=== PATIENT | male | born 1955 | race Caucasian/White ===

== ENCOUNTER 2022-08-30 16:32 | Emergency (ER) | payer OTHER ==
[~2022-08-30] VITALS: Ht 175.3 cm; Wt 99.8 kg
[~2022-08-30 16:32] MED LIST: ACET325 PO; AMLO5 PO; ASPI325; ATOR40TA; CHLO25 PO; CLOP75; CYCL10 PO; ERYT.5TO LEFTEYE; ESOM20; HYDACE5 PO; IBUHYD PO; Keflex500 MG PO; LISHYD2025; LISI20 PO; METPRE4DP PO; MULVITMIND PO; NAPR500 PO; NAPR550 PO; Norco 5-325 Ta1 EACH PO; OMEP20ER PO; OMEP40CA12 PO; OXYACE5T PO; OXYC5 PO; PANT40 PO; Percocet 5-3251 EACH PO; Prilosec20 MG PO; Robaxin500 MG PO; SUCR1 PO; TAMS.4ER; TAMS.4ER PO; Zofran Odt4 MG SL; [UNRECOGNIZED DRUG - OTHER]
[2022-08-30] MEDS ORDERED: Percocet 5-3251 EACH PO (20:12)
== END 2022-08-30 20:48 | disposition home or self-care (01) ==
LOC: ER 16:32
DX: S43.101A Unspecified dislocation of right acromioclavicular joint, initial encounter (principal); W19.XXXA Unspecified fall, initial encounter; I10 Essential (primary) hypertension; Z88.2 Allergy status to sulfonamides; Z79.899 Other long term (current) drug therapy
CPT/HCPCS: 29105; 73030; 99283-25; A9270

== ENCOUNTER 2023-06-27 17:43 | Emergency (ER) | payer OTHER ==
[~2023-06-27] VITALS: Ht 170.2 cm; Wt 74.8 kg
[2023-06-27 18:30] VITALS: BP 123/79
[2023-06-27] MEDS ORDERED: CYCL10 PO (19:34)
== END 2023-06-27 19:40 | disposition home or self-care (01) ==
LOC: ER 17:43
DX: S70.02XA Contusion of left hip, initial encounter (principal); W01.10XA Fall on same level from slipping, tripping and stumbling with subsequent striking against unspecified object, initial encounter; I10 Essential (primary) hypertension; Z88.2 Allergy status to sulfonamides; Z79.899 Other long term (current) drug therapy
CPT/HCPCS: 72100; 73502; 96374; 99284-25; A9270; J3010

== ENCOUNTER → 2023-07-06 | Outpatient (CLI) | payer OTHER ==
[2023-07-06 15:23] LABS: Alanine Aminotransfer (ALT/SGP 33 U/L (12-78); Albumin, Blood 3.9 g/dL (3.4-5.0); Alk Phos 62 U/L (50-136); Anion Gap 4 mmol/L (6-16); Aspartate Aminotrans (AST/SGOT 33 U/L (12-37); Bilirubin, Total 0.6 mg/dL (0.1-1.0); Blood Urea Nitrogen 9 mg/dL (8-24); CHOL/HDL RATIO 1.9; CO2, Blood 25 mmol/L (21-32); Calcium, Blood 9.9 mg/dL (8.5-10.1); Chloride, Blood 102 mmol/L (98-108); Cholesterol 212 mg/dL (50-200); Glucose, Blood 119 mg/dL (70-99); HDL Cholesterol 110 mg/dL (>39); LDL/HDL RATIO 0.8; Low Density Lipoprotein Chol 89 mg/dL (0-110); Potassium, Blood 4.2 mmol/L (3.5-5.5); Sodium, Blood 131 mmol/L (136-145); Triglycerides 67 mg/dL (30-160); Very Low Density Lipoprot Chol 13 mg/dL (6-32)
[2023-07-06 15:27] LABS: Albumin/Globulin Ratio 1.1 (0.8-1.8); Bun/Creatinine Ratio 12.3 (12.0-20.0); Creatinine, Blood 0.73 mg/dL (0.60-1.20); Globulin, Blood 3.6 g/dL (2.2-4.0); Glomerular Filtration Rate 99 (60-); Total Protein, Blood 7.5 g/dL (6.4-8.2)
== END | disposition home or self-care (01) ==
LOC: LAB SHORT 08:05 → LAB 08:05
PROVIDERS: Physician Assistant
DX: I10 Essential (primary) hypertension (principal); E78.2 Mixed hyperlipidemia
CPT/HCPCS: 80053; 80061

== ENCOUNTER 2024-03-19 07:57 | Day surgery (SDC) | payer OTHER ==
[~2024-03-19] VITALS: Ht 172 cm; Wt 98.6 kg
[2024-03-19] VITALS (17 sets, daily range): BP systolic 97–158; BP diastolic 55–97
[~2024-03-19 07:57] MED LIST changes: +AMLO10 PO; +ATORVASTATIN CA20 MG PO; +Acetaminophen 500 MG Tab PO SCH; +CeFAZolin Sodium 2,000 MG in NS 100 ML IV SCH; +Chlorhexidine Mouth Care 15 ML UDC MT SCH; +Lactated Ringer's 1,000 ML IV SCH; +OxyCODONE HCL 10 MG TABCR PO SCH; +ROSU5 PO; +Ropivacaine 0.5% HCl/Pf 123.125 MG,EPINEPHrine HCL 0.25 MG,Ketorolac Tromethamine 15 MG... INFIL SCH; +Tranexamic Acid 100 ML IV SCH
[2024-03-19] MEDS ORDERED: Ropivacaine 0.5% HCl/Pf 5 MG/ML 20ML VIAL ONE (09:33)
[2024-03-19] MEDS ORDERED: Metoclopramide HCl 5MG / ML 2ML Vial IV PRN (09:40)
[2024-03-19] MEDS ORDERED: HYDROmorphone HCl/Pf 1MG SYR IV PRN (09:40)
[2024-03-19] MEDS ORDERED: Ondansetron HCl 2 MG / ML 2ML Vial IV PRN (09:40)
[2024-03-19] MEDS ORDERED: DiphenhydrAMINE HCL 25 MG Cap PO PRN (09:40)
[2024-03-19] MEDS ORDERED: OxyCODONE HCL 5 MG TAB PO PRN ×2 (09:40)
[2024-03-19] MEDS ORDERED: Lactated Ringer's 1,000 ML IV SCH (09:45)
[2024-03-19] MEDS ORDERED: Magnesium Hydroxide Conc 10 ML UDC PO PRN (09:45)
[2024-03-19] MEDS ORDERED: Bisacodyl 10 MG Supp PR PRN (09:45)
[2024-03-19] MEDS ORDERED: Prochlorperazine Edisylate 10 mg Vial IV PRN (09:50)
[2024-03-19] MEDS ORDERED: Promethazine HCl 25 MG Tab PO PRN (09:50)
[2024-03-19] MEDS ORDERED: propofoL 20 ML IV ONE (10:16)
[2024-03-19] MEDS ORDERED: Lidocaine HCl 2% 20 ML MDV ONE (10:33)
[2024-03-19] MEDS ORDERED: Dexamethasone Sod Phos 10 MG/ML 1ML VIAL ONE (10:40)
[2024-03-19] MEDS ORDERED: FentaNYL Citrate 50 MCG/ML 2 ML Injection ONE ×2 (10:44→12:25)
--- NOTE | 2024-03-19 11:08 | NUR ---
03/19/24 1108 Donan Ramires SPINAL NERVE BLOCK ATTEMPTED UPON ENTRY TO OR. UNSUCCESSFUL DUE TO PATIENTS PRIOR BACK SURGERY. DR. ROQUE PLACED AN LMA
[2024-03-19] MEDS ORDERED: Ondansetron HCl 2 MG / ML 2ML Vial ONE (11:33)
[2024-03-19] MEDS ORDERED: Phenylephrine HCl 100 MCG/ML-NS 10MLSYR (1MG/10ML) ONE (12:03)
[2024-03-19] MEDS ORDERED: HYDROmorphone HCl/Pf 1MG SYR ONE (12:40)
[2024-03-19] MEDS ORDERED: Acetaminophen 500 MG Tab PO SCH (16:00)
[2024-03-19] MEDS ORDERED: Ketorolac Tromethamine 15mg Vial IV SCH (18:00)
--- NOTE | 2024-03-19 18:15 | NUR ---
SHIFT SUMMARY PT ARRIVED FROM OR VIA BED THIS AFTERNOON FOR RTHA. A&0 X4. VSS. PPP. DENIES N/V OR N/T. INCISION SITE COVERED WITH AQUACEL. NO DRAINAGE SEEN. EATING AND DRINKING TOLERATED. WORKED WITH PT THIS AFTERNOON. AMBULATED FROM BED TO BATHROOM TO CHAIR. PT REPORTS PAIN AT 6-7/10 AND IS BEING MANAGED PER EMAR.
[2024-03-19] MEDS ORDERED: CeFAZolin Sodium 2,000 MG in NS 100 ML IV SCH (18:30)
[2024-03-19] MEDS ORDERED: Docusate Sodium 100 MG Cap PO SCH (21:00)
[2024-03-20 00:05] VITALS: BP 137/95
[2024-03-20 03:10] VITALS: BP 151/99
--- NOTE | 2024-03-20 04:53 | NUR ---
SHIFT SUMMARY S/P R JAZMIN. AQUACEL DRESSING REMAINS CDI WITH POLAR PACK IN PLACE. UP TO AMBULATE/RESTROOM WITH 1 SBA USING FWW/GB. 2 JULY/TORADOL/TYLENOL FOR PAIN MANAGEMENT. VSS. USING CALL LIGHT APPORPRIATELY.
[2024-03-20 05:57] LABS: BASOPHILS ABSOLUTE AUTO 0.01 K/mm3 (0.00-0.23); BASOPHILS PERCENT AUTO 0 % (0-2); EOSINOPHILS PERCENT AUTO 0 % (0-6); Hematocrit 34.3 % (37.0-53.0); Hemoglobin 11.8 g/dL (13.5-17.5); IMMATURE GRAN ABSOLUTE AUTO 0.04 K/mm3 (0.00-0.10); IMMATURE GRAN PERCENT AUTO 0 % (0-1); LYMPHOCYTES ABSOLUTE AUTO 0.74 K/mm3 (0.84-5.20); LYMPHOCYTES PERCENT AUTO 6 % (21-46); MONOCYTES ABSOLUTE AUTO 0.67 K/mm3 (0.16-1.47); MONOCYTES PERCENT AUTO 6 % (4-13); Mean Corpuscular HGB 35.3 pg (26.0-34.0); Mean Corpuscular HGB Conc 34.4 g/dL (31.5-36.5); Mean Corpuscular Volume 103 fL (80-100); Mean Platelet Volume 9.1 fL (9.1-12.4); NEUTROPHILS ABSOLUTE AUTO 10.08 K/mm3 (1.96-9.15); NEUTROPHILS PERCENT AUTO 87 % (41-73); Platelet Count 243 K/mm3 (150-400); RDW Coefficient Variation 12.5 % (11.7-14.2); Red Blood Cell Count 3.34 M/mm3 (4.30-5.90); White Blood Cell Count 11.54 K/mm3 (4.00-11.30)
[2024-03-20] MEDS ORDERED: Omeprazole 20 MG CapCR PO SCH (06:00)
[2024-03-20 06:29] LABS: Bun/Creatinine Ratio 20.2 (12.0-20.0); Calcium, Blood 9.4 mg/dL (8.5-10.1); Creatinine, Blood 0.69 mg/dL (0.60-1.20); Potassium, Blood 3.6 mmol/L (3.5-5.5)
[2024-03-20 07:20] VITALS: BP 156/98
[2024-03-20] MEDS ORDERED: Rosuvastatin Calcium 10 MG Tab PO SCH (09:00)
[2024-03-20] MEDS ORDERED: Tamsulosin HCl 0.4 MG Cap PO SCH (09:00)
[2024-03-20] MEDS ORDERED: AmLODIPine Besylate 5 MG Tab PO SCH (09:00)
[2024-03-20] MEDS ORDERED: Aspirin 81 MG Chew PO SCH (09:00)
[2024-03-20] MEDS ORDERED: ASPI81CH PO (09:11)
--- NOTE | 2024-03-20 11:15 | NUR ---
DISCHARGE NOTE PATIENT WAS ABLE TO WORK WITH PT THIS MORNING. EATING, DRINKING, AND VOIDING FINE. DENIES N/V, N/T. PPP. VSS. INCISION SITE DRY CLEAN AND INTACT. COVERED WITH AQUACEL. IV WAS REMOVED AND DISCHARGE TEACHING COMPLETED WITH HIS . TAKEN OUT TO CAR VIA WHEELCHAIR TO CAR WHERE WAS WAITING TO TAKE HIM HOME.
== END 2024-03-20 11:11 | disposition home or self-care (01) ==
LOC: ORSCMMR 07:57 → ORD 09:15 → SURS 13:10 → ORSCMMR 03-20 11:11
PROVIDERS: Orthopaedic Surgery
PROC: 0SR90JZ Replacement of Right Hip Joint with Synthetic Substitute, Open Approach (ICD-10-PCS; principal; 2024-03-19 09:15)
DX: M16.11 Unilateral primary osteoarthritis, right hip (principal); I10 Essential (primary) hypertension; K21.9 Gastro-esophageal reflux disease without esophagitis; E78.5 Hyperlipidemia, unspecified; Z79.899 Other long term (current) drug therapy
CPT/HCPCS: 36415; 72170; 80048; 82947; 85025; 97110; 97116; 97162; A9270; C1776; J0171; J0690; J0735; J1100; J1170; J1885; J2371; J2405; J2704; J2795; J3010; J7120

== ENCOUNTER 2024-05-16 05:48 | Day surgery (SDC) | payer OTHER ==
[~2024-05-16] VITALS: Ht 172.7 cm; Wt 99.4 kg
[2024-05-16] VITALS (15 sets, daily range): BP systolic 116–164; BP diastolic 79–97
[~2024-05-16 05:48] MED LIST changes: +ASPI81CH PO; -Acetaminophen 500 MG Tab PO SCH; -CeFAZolin Sodium 2,000 MG in NS 100 ML IV SCH; -Chlorhexidine Mouth Care 15 ML UDC MT SCH; -Lactated Ringer's 1,000 ML IV SCH; -OxyCODONE HCL 10 MG TABCR PO SCH; -Ropivacaine 0.5% HCl/Pf 123.125 MG,EPINEPHrine HCL 0.25 MG,Ketorolac Tromethamine 15 MG... INFIL SCH; -Tranexamic Acid 100 ML IV SCH
[2024-05-16] MEDS ORDERED: Chlorhexidine Mouth Care 15 ML UDC MT SCH (06:30)
[2024-05-16] MEDS ORDERED: Lactated Ringer's 1,000 ML IV SCH ×2 (06:30→08:10)
[2024-05-16] MEDS ORDERED: CeFAZolin Sodium 2,000 MG in NS 100 ML IV SCH ×2 (06:30→16:00)
[2024-05-16] MEDS ORDERED: Acetaminophen 500 MG Tab PO SCH ×2 (06:30→16:00)
[2024-05-16] MEDS ORDERED: Ropivacaine 0.5% HCl/Pf 123.125 MG,EPINEPHrine HCL 0.25 MG,Ketorolac Tromethamine 15 MG... INFIL SCH (06:30)
[2024-05-16] MEDS ORDERED: OxyCODONE HCL 10 MG TABCR PO SCH (06:30)
[2024-05-16] MEDS ORDERED: Tranexamic Acid 100 ML IV SCH (06:35)
--- NOTE | 2024-05-16 06:57 | NUR ---
History, Chart, Medications and Allergies reviewed before start of procedure. Pre-Op teaching done. Pt verbalizes understanding. Whellchaired into Day Surgery with .
[2024-05-16] MEDS ORDERED: propofoL 20 ML IV ONE (07:48)
[2024-05-16] MEDS ORDERED: FentaNYL Citrate 50 MCG/ML 2 ML Injection ONE ×3 (07:53→09:13)
[2024-05-16] MEDS ORDERED: Promethazine HCl 25 MG Tab PO PRN (08:00)
[2024-05-16] MEDS ORDERED: Ondansetron HCl 2 MG / ML 2ML Vial IV PRN (08:00)
[2024-05-16] MEDS ORDERED: Magnesium Hydroxide Conc 10 ML UDC PO PRN (08:00)
[2024-05-16] MEDS ORDERED: Metoclopramide HCl 5MG / ML 2ML Vial IV PRN (08:00)
[2024-05-16] MEDS ORDERED: Prochlorperazine Edisylate 10 mg Vial IV PRN (08:00)
[2024-05-16] MEDS ORDERED: OxyCODONE HCL 5 MG TAB PO PRN ×2 (08:00)
[2024-05-16] MEDS ORDERED: Bisacodyl 10 MG Supp PR PRN (08:05)
[2024-05-16] MEDS ORDERED: DiphenhydrAMINE HCL 25 MG Cap PO PRN (08:05)
[2024-05-16] MEDS ORDERED: HYDROmorphone HCl/Pf 1MG SYR IV PRN (08:10)
[2024-05-16] MEDS ORDERED: Phenylephrine HCl 100 MCG/ML-NS 10MLSYR (1MG/10ML) ONE (08:20)
[2024-05-16] MEDS ORDERED: Tamsulosin HCl 0.4 MG Cap PO SCH (09:00)
[2024-05-16] MEDS ORDERED: Docusate Sodium 100 MG Cap PO SCH (09:00)
[2024-05-16] MEDS ORDERED: Rosuvastatin Calcium 10 MG Tab PO SCH (09:00)
[2024-05-16] MEDS ORDERED: AmLODIPine Besylate 5 MG Tab PO SCH (09:00)
[2024-05-16] MEDS ORDERED: HYDROmorphone HCl/Pf 1MG SYR ONE ×2 (10:12→10:30)
[2024-05-16] MEDS ORDERED: Ketorolac Tromethamine 15mg Vial IV SCH (12:00)
[2024-05-16] MEDS ORDERED: Ondansetron HCl 2 MG / ML 2ML Vial ONE (12:05)
[2024-05-16] MEDS ORDERED: Dexamethasone Sod Phos 10 MG/ML 1ML VIAL ONE (12:05)
[2024-05-17 00:38] VITALS: BP 114/69
[2024-05-17 02:52] VITALS: BP 141/75
[2024-05-17 05:16] LABS: BASOPHILS ABSOLUTE AUTO 0.02 K/mm3 (0.00-0.23); BASOPHILS PERCENT AUTO 0 % (0-2); EOSINOPHILS PERCENT AUTO 0 % (0-6); Hemoglobin 10.8 g/dL (13.5-17.5); IMMATURE GRAN ABSOLUTE AUTO 0.06 K/mm3 (0.00-0.10); IMMATURE GRAN PERCENT AUTO 1 % (0-1); LYMPHOCYTES ABSOLUTE AUTO 1.11 K/mm3 (0.84-5.20); LYMPHOCYTES PERCENT AUTO 8 % (21-46); MONOCYTES ABSOLUTE AUTO 0.94 K/mm3 (0.16-1.47); MONOCYTES PERCENT AUTO 7 % (4-13); Mean Corpuscular HGB Conc 33.8 g/dL (31.5-36.5); Mean Corpuscular Volume 101 fL (80-100); Mean Platelet Volume 9.4 fL (9.1-12.4); NEUTROPHILS ABSOLUTE AUTO 11.12 K/mm3 (1.96-9.15); NEUTROPHILS PERCENT AUTO 84 % (41-73); Platelet Count 273 K/mm3 (150-400); RDW Coefficient Variation 12.5 % (11.7-14.2); RDW Standard Deviation 46.4 fL (35.1-46.3); Red Blood Cell Count 3.18 M/mm3 (4.30-5.90); White Blood Cell Count 13.25 K/mm3 (4.00-11.30)
[2024-05-17 05:55] LABS: Bun/Creatinine Ratio 22.8 (12.0-20.0); Calcium, Blood 8.8 mg/dL (8.5-10.1); Creatinine, Blood 0.61 mg/dL (0.60-1.20); Potassium, Blood 3.7 mmol/L (3.5-5.5)
[2024-05-17] MEDS ORDERED: Omeprazole 20 MG CapCR PO SCH (06:00)
--- NOTE | 2024-05-17 07:38 | NUR ---
SHIFT SUMMARY NOC. PT POD 1 FOR LEFT TOTAL HIP. A/O X4. AMBULATES TO BR WITH SBA, FWW, AND GAITBELT. PT MEDICATED FOR PAIN OXY 10MG WITH REPORTED RELIEF. POLAR PACK IN PLACE. AQUACEL DRESSING C/D/I. PT VOIDING URINE, DID HAVE RETENTION DURING NIGHT BUT VOIDED WELL AFTER. PT RESTED WITH EYES CLOSED AND CALL LIGHT IN REACH.
[2024-05-17 07:40] VITALS: BP 148/90
[2024-05-17] MEDS ORDERED: Aspir 8181 MG PO (07:44)
[2024-05-17] MEDS ORDERED: Aspirin 81 MG Chew PO SCH (09:00)
[2024-05-17 09:44] VITALS: BP 130/85
--- NOTE | 2024-05-17 11:00 | NUR ---
SHIFT/DISCHARGE SUMMARY: PATIENT A/OX4, PLEASANT AND COOPERATIVE c CARE. PATIENT REPORTS PAIN TO L HIP, MACHINE CELL TUBER, ERIKA MEDICATED c PRN PAIN MEDS c GOOD EFFECT. DRESSING TO L HIP C/D/I. PATIENT WORKS c PT MOBILITY THIS AM, TOLERATING WELL. PATIENT DENIES CP/PRESSURE, SOB, N/V AND DIZZINESS. VITAL SIGNS REVIEWED. PIV WAS DC'D BY MACHINE CELL TUBER, ERIKA. PATIENT DISCHARGE HOME. CHARGE INSTRUCTIONS PACKET GIVEN BY MACHINE CELL TUBER, ERIKA. NICOLE, EDUCATE PATIENT REGARDING POST-OP SX TO L HIP, NEW PRESCRIBED RX, SELF CARE, AND TO F/U c DR. YEAGER. PATIENT VERBALIZED UNDERSTANDING AND NO FURTHER QUESTIONS. RX WAS FAXED BY [facility] TO PATIENT PREFERRED PHARMACY. ALL PATIENT PERSONAL BELONGINGS WERE SENT HOME c THE PATIENT. PATIENT LEFT THE ROOM AT 0920 AND WAS TRANSPORTED BY [employer]ANCIAL SERVICES REP TO PATIENT ENTRANCE.
== END 2024-05-17 09:46 | disposition home or self-care (01) ==
LOC: ORSCMMR 05:48 → ORD 08:00 → ORSCMMR 08:00 → SURS 10:46 → ORSCMMR 05-17 09:46 → ORD 05-21 09:15
PROVIDERS: Orthopaedic Surgery
PROC: 0SRB0JZ Replacement of Left Hip Joint with Synthetic Substitute, Open Approach (ICD-10-PCS; principal; 2024-05-16 08:00)
DX: M16.12 Unilateral primary osteoarthritis, left hip (principal); Z96.641 Presence of right artificial hip joint; I10 Essential (primary) hypertension; G47.33 Obstructive sleep apnea (adult) (pediatric); K21.9 Gastro-esophageal reflux disease without esophagitis; Z79.899 Other long term (current) drug therapy
CPT/HCPCS: 36415; 72170; 80048; 85025; 97110; 97116; 97162; 97530; A9270; C1776; J0171; J0690; J0735; J1100; J1170; J1885; J2371; J2405; J2704; J2795; J3010; J7120

== ENCOUNTER 2024-09-19 12:24 | Day surgery (SDC) | payer OTHER ==
[~2024-09-19] VITALS: Ht 172.7 cm; Wt 111.0 kg
[~2024-09-19 12:24] MED LIST changes: +Aspir 8181 MG PO; +Lactated Ringer's 1,000 ML IV ONE
[2024-09-19] MEDS ORDERED: propofoL 50 ML IV ONE (13:46)
[2024-09-19] MEDS ORDERED: Lactated Ringer's 1,000 ML IV ONE (13:49)
[2024-09-19] MEDS ORDERED: Ondansetron HCl 2 MG / ML 2ML Vial ONE (14:13)
[2024-09-19 15:11] VITALS: BP 126/86
== END 2024-09-19 15:13 | disposition home or self-care (01) ==
LOC: ORSCSDS 12:24
PROVIDERS: Surgery
PROC: 0DBN8ZX Excision of Sigmoid Colon, Via Natural or Artificial Opening Endoscopic, Diagnostic (ICD-10-PCS; principal; 2024-09-19 14:00)
PROC: 0DBH8ZX Excision of Cecum, Via Natural or Artificial Opening Endoscopic, Diagnostic (ICD-10-PCS; principal; 2024-09-19 14:00)
PROC: 0DBM8ZX Excision of Descending Colon, Via Natural or Artificial Opening Endoscopic, Diagnostic (ICD-10-PCS; principal; 2024-09-19 14:00)
DX: Z12.11 Encounter for screening for malignant neoplasm of colon (principal); R19.5 Other fecal abnormalities; D12.0 Benign neoplasm of cecum; D12.4 Benign neoplasm of descending colon; D12.5 Benign neoplasm of sigmoid colon; K57.30 Diverticulosis of large intestine without perforation or abscess without bleeding; Z86.0100 Personal history of colon polyps, unspecified; I10 Essential (primary) hypertension; E78.5 Hyperlipidemia, unspecified; G25.0 Essential tremor; N40.0 Benign prostatic hyperplasia without lower urinary tract symptoms; F03.A0 Unspecified dementia, mild, without behavioral disturbance, psychotic disturbance, mood disturbance, and anxiety; Z79.899 Other long term (current) drug therapy
CPT/HCPCS: 88305; J2405; J2704; J7120

== ENCOUNTER → 2025-01-03 | Outpatient (CLI) | payer OTHER ==
[~2025-01-03] MED LIST changes: -Lactated Ringer's 1,000 ML IV ONE
[2025-01-03 12:43] LABS: Microalb/Creat Ratio UR, Rand 15.233 mg/g (0.000-30.000); Microalbumin, Random Urine 26.2 mg/L (0.000-20.000)
== END ==
LOC: LAB SHORT 10:34 → LAB 10:34
PROVIDERS: Physician Assistant
DX: E11.59 Type 2 diabetes mellitus with other circulatory complications (principal); E11.69 Type 2 diabetes mellitus with other specified complication; E11.36 Type 2 diabetes mellitus with diabetic cataract
CPT/HCPCS: 82043; 82570

== ENCOUNTER 2025-03-25 08:33 | Day surgery (SDC) | payer OTHER ==
[2025-03-25] VITALS (24 sets, daily range): BP systolic 116–207; BP diastolic 73–121
[~2025-03-25] VITALS: Ht 172.7 cm; Wt 116.2 kg
[~2025-03-25 08:33] MED LIST changes: +Acetaminophen 500 MG Tab PO SCH; +CeFAZolin Sodium 3,000 MG in NS 100 ML IV SCH; +Chlorhexidine Mouth Care 15 ML UDC MT SCH; +Lactated Ringer's 1,000 ML IV SCH; +OxyCODONE HCL 10 MG TABCR PO SCH; +ROSUVASTATIN CAL5 MG PO; +Ropivacaine 0.5% HCl/Pf 123.125 MG,EPINEPHrine HCL 0.25 MG,Ketorolac Tromethamine 15 MG... INFIL SCH; +Tranexamic Acid 100 ML IV SCH
[2025-03-25] MEDS ORDERED: propofoL 0 ML IV ONE (09:08)
[2025-03-25] MEDS ORDERED: CeFAZolin Sodium 2,000 MG in NS 100 ML IV SCH ×2 (09:10→19:45)
[2025-03-25] MEDS ORDERED: FentaNYL Citrate 50 MCG/ML 2 ML Injection ONE ×2 (09:10→13:45)
--- NOTE | 2025-03-25 09:16 | NUR ---
Ambulatory in Day Surgery Patient confirms NPO status and agrees with scheduled surgery. Pre-Op teaching done. Pt verbalizes understanding. History, Chart, Medications and Allergies reviewed before start of procedure. Patient reports completing Chlorhexadine shower X2 prior to admission to hospital.
[2025-03-25] MEDS ORDERED: HYDROmorphone HCl/Pf 1MG SYR ONE ×2 (09:36→12:19)
[2025-03-25] MEDS ORDERED: CeFAZolin Sodium 2,000 MG VIAL ONE (09:43)
[2025-03-25] MEDS ORDERED: Promethazine HCl 25 MG Tab PO PRN (09:45)
[2025-03-25] MEDS ORDERED: Bisacodyl 10 MG Supp PR PRN (09:45)
[2025-03-25] MEDS ORDERED: Metoclopramide HCl 5MG / ML 2ML Vial IV PRN ×3 (09:50→13:35)
[2025-03-25] MEDS ORDERED: Labetalol HCL 5 MG/ML 4ML Injection (Single Dose) ONE ×2 (09:50→13:42)
[2025-03-25] MEDS ORDERED: OxyCODONE HCL 5 MG TAB PO PRN ×2 (09:50)
[2025-03-25] MEDS ORDERED: Ondansetron HCl 2 MG / ML 2ML Vial IV PRN ×3 (09:50→13:30)
[2025-03-25] MEDS ORDERED: HYDROmorphone HCl/Pf 1MG SYR IV PRN ×5 (09:55→13:35)
[2025-03-25] MEDS ORDERED: Magnesium Hydroxide Conc 10 ML UDC PO PRN (09:55)
[2025-03-25] MEDS ORDERED: DiphenhydrAMINE HCL 25 MG Cap PO PRN (09:55)
--- NOTE | 2025-03-25 10:03 | NUR ---
BOTH DR. YEAGER AND DR. MITCHELL NOTIFIED OF PT'S BP. WILL TX INTEROP PER DR. MITCHELL
[2025-03-25] MEDS ORDERED: propofoL 20 ML IV ONE (10:08)
[2025-03-25] MEDS ORDERED: Ketorolac Tromethamine 30mg Vial ONE (10:08)
[2025-03-25] MEDS ORDERED: Dexamethasone Sod Phos 10 MG/ML 1ML VIAL ONE (10:08)
[2025-03-25] MEDS ORDERED: Rocuronium Bromide 10 MG/ML 5ML Injection IV ONE (10:08)
[2025-03-25] MEDS ORDERED: Ondansetron HCl 2 MG / ML 2ML Vial ONE ×2 (10:08→13:49)
[2025-03-25] MEDS ORDERED: Lactated Ringer's 1,000 ML IV SCH (10:15)
[2025-03-25] MEDS ORDERED: Ketorolac Tromethamine 15mg Vial IV SCH (12:00)
[2025-03-25] MEDS ORDERED: ePHEDrine Sulfate 50 MG/ML 1ML Injection IV PRN ×2 (13:25)
[2025-03-25] MEDS ORDERED: Labetalol HCL 5 MG/ML 4ML Injection (Single Dose) IV PRN ×2 (13:25→13:40)
[2025-03-25] MEDS ORDERED: Atropine Sulfate 0.1 MG/ML 10ML SYR IV PRN ×2 (13:25→13:30)
[2025-03-25] MEDS ORDERED: Albuterol 2.5 MG/3 ML VIAL INH PRN ×2 (13:30)
[2025-03-25] MEDS ORDERED: FentaNYL Citrate 50 MCG/ML 2 ML Injection IV PRN ×4 (13:35→13:40)
[2025-03-25] MEDS ORDERED: Metoclopramide HCl 5MG / ML 2ML Vial ONE (13:58)
[2025-03-25] MEDS ORDERED: Droperidol 5 mg/2 ml Vial ONE (14:10)
[2025-03-25] MEDS ORDERED: Scopolamine Hydrobromide Patch TOP SCH (14:35)
[2025-03-25] MEDS ORDERED: Droperidol 5 mg/2 ml Vial IV ONE (14:35)
[2025-03-25] MEDS ORDERED: Acetaminophen 500 MG Tab PO SCH (16:00)
--- NOTE | 2025-03-25 16:13 | NUR ---
ARRIVAL TO SURGICAL FLOOR PAIN BETTER CONTROLLED AFTER MEDS IN PACU. HRR, VSS. CURRENTLY ON 1L O2 NC. LUNG SOUNDS DIMINISHED. INICISON WNL, AQUACEL AND YESIKA BANDAGE PRESENT. PPP. WIGGLES TOES. BRISK CAP REFILL. STATES NAUSEA RESOLVED. AWAITING POST OP VOID. SNACKS AND DRINKS AT GIVEN. FAMILY AT BEDSIDE.
--- NOTE | 2025-03-25 19:43 | NUR ---
SHIFT SUMMARY PAIN CONTROLLED WELL, DENIES NAUSEA. TOLERATING FOOD AND FLUIDS WELL. DID NOT WORK WITH THERAPY, BUT GOT UP IN CHAIR FOR DINNER. AMBULATED TO BATHROOM FOR VOID. EXPRESSED DESIRE TO STAY OVERNIGHT DUE TO SEVERAL STAIRS AT HOME. COLD THERAPY APPLIED, CURRENTLY RESTING IN BED.
[2025-03-25] MEDS ORDERED: Docusate Sodium 100 MG Cap PO SCH (21:00)
[2025-03-26 00:16] VITALS: BP 150/95
[2025-03-26 03:20] VITALS: BP 154/81
[2025-03-26 05:03] LABS: BASOPHILS ABSOLUTE AUTO 0.02 K/mm3 (0.00-0.23); BASOPHILS PERCENT AUTO 0 % (0-2); EOSINOPHILS ABSOLUTE AUTO 0.01 K/mm3 (0.00-0.68); EOSINOPHILS PERCENT AUTO 0 % (0-6); Hematocrit 36.2 % (37.0-53.0); Hemoglobin 12.3 g/dL (13.5-17.5); IMMATURE GRAN ABSOLUTE AUTO 0.05 K/mm3 (0.00-0.10); IMMATURE GRAN PERCENT AUTO 0 % (0-1); LYMPHOCYTES ABSOLUTE AUTO 1.04 K/mm3 (0.84-5.20); LYMPHOCYTES PERCENT AUTO 7 % (21-46); MONOCYTES ABSOLUTE AUTO 0.94 K/mm3 (0.16-1.47); MONOCYTES PERCENT AUTO 7 % (4-13); Mean Corpuscular HGB 30.2 pg (26.0-34.0); Mean Corpuscular Volume 89 fL (80-100); Mean Platelet Volume 8.8 fL (9.1-12.4); NEUTROPHILS ABSOLUTE AUTO 12.41 K/mm3 (1.96-9.15); NEUTROPHILS PERCENT AUTO 86 % (41-73); Platelet Count 274 K/mm3 (150-400); RDW Coefficient Variation 14.6 % (11.7-14.2); RDW Standard Deviation 46.9 fL (35.1-46.3); Red Blood Cell Count 4.07 M/mm3 (4.30-5.90); White Blood Cell Count 14.47 K/mm3 (4.00-11.30)
[2025-03-26 05:21] LABS: Calcium, Blood 9.1 mg/dL (8.5-10.1); Creatinine, Blood 0.74 mg/dL (0.60-1.20); Magnesium, Blood 1.7 mg/dL (1.6-2.4)
[2025-03-26] MEDS ORDERED: Omeprazole 20 MG CapCR PO SCH (06:00)
[2025-03-26 07:12] VITALS: BP 167/93
--- NOTE | 2025-03-26 07:52 | NUR ---
SHIFT SUMMARY LT TOTAL KNEE SURG TODAY. PATIENT IS SLEEPING BUT WOKE TO VERBAL. ALERT AND ORIENTED X4. LT KNEE WITH MEDIPORE DRESSING AND YESIKA WRAP. POLAR PACK AND PAS IN PLACE. CIRC CHECKS WNL. PPP. VSS T/O NOC. SB ASSIST TO THE BR TO VOID A FEW TIMES. WEIGHT BEARING TOLERATED. MEDICATED PATIENT WITH SCHEDULED MEDS AND PRN NEEDED. PAIN UNDER CONTROL NOW. OXYCODONE 10MG PO AT 0207 WAS LAST DOSE. SL LT WRIST PATENT. PT WAS ABLE TO REST WHEN UNDISTURBED. 0630 PATIENT RATED PAIN 2/10. HE IS READY TO GO HOME. EDUCATION GIVEN T/O NOC. CALL LIGHT IN REACH AND BED IN LOWEST POSITION T/O NOC. WILL GIVE REPORT TO ON-COMING RN TAKING PT.
[2025-03-26] MEDS ORDERED: Tamsulosin HCl 0.4 MG Cap PO SCH (09:00)
[2025-03-26] MEDS ORDERED: AmLODIPine Besylate 5 MG Tab PO SCH (09:00)
[2025-03-26] MEDS ORDERED: Rosuvastatin Calcium 10 MG Tab PO SCH (09:00)
[2025-03-26] MEDS ORDERED: Aspirin 81 MG Chew PO SCH (09:00)
--- NOTE | 2025-03-26 10:18 | NUR ---
TAMAR FROM PHYSICAL THERAPY IN ROOM AT THIS TIME. PLAN IS FOR DC AFTER THERAPY.
[2025-03-26 10:57] VITALS: BP 140/86
--- NOTE | 2025-03-26 13:00 | NUR ---
DISCHARGE: PT CLEARED BY THERAPY. PT IS AMBULATING WITH WALKER, PAIN MANAGED AND IS VOIDING. THIS RN INSTRUCTED PT ON DC PAPERWORK. IV DC'D WNL, TIP INTACT AND PT LEFT UNIT VIA WHEELCHAIR WITH WILLY STEPHENSON AT ABOUT 1230
== END 2025-03-26 12:40 | disposition home or self-care (01) ==
LOC: ORSCMMR 08:33 → ORD 10:00 → SURS 15:00 → ORSCMMR 03-26 12:40
PROVIDERS: Orthopaedic Surgery
PROC: 0SRD0JA Replacement of Left Knee Joint with Synthetic Substitute, Uncemented, Open Approach (ICD-10-PCS; principal; 2025-03-25 10:00)
DX: M17.12 Unilateral primary osteoarthritis, left knee (principal); I10 Essential (primary) hypertension; E78.5 Hyperlipidemia, unspecified; K21.9 Gastro-esophageal reflux disease without esophagitis; N40.0 Benign prostatic hyperplasia without lower urinary tract symptoms; E66.01 Morbid (severe) obesity due to excess calories; Z68.39 Body mass index [BMI] 39.0-39.9, adult; Z79.899 Other long term (current) drug therapy; Z96.643 Presence of artificial hip joint, bilateral
CPT/HCPCS: 36415; 73560-LT; 80048; 82947; 83735; 85025; 97110; 97116; 97162; A9270; C1713; C1776; J0171; J0690; J0735; J1100; J1171; J1790; J1885; J2405; J2704; J2765; J2795; J3010; J7120

== ENCOUNTER 2025-10-02 16:58 | Emergency (ER) | payer OTHER ==
[~2025-10-02] VITALS: Ht 175.3 cm; Wt 95.2 kg
[~2025-10-02 16:58] MED LIST changes: -Acetaminophen 500 MG Tab PO SCH; -CeFAZolin Sodium 3,000 MG in NS 100 ML IV SCH; -Chlorhexidine Mouth Care 15 ML UDC MT SCH; -Lactated Ringer's 1,000 ML IV SCH; -OxyCODONE HCL 10 MG TABCR PO SCH; -Ropivacaine 0.5% HCl/Pf 123.125 MG,EPINEPHrine HCL 0.25 MG,Ketorolac Tromethamine 15 MG... INFIL SCH; -Tranexamic Acid 100 ML IV SCH
[2025-10-02] MEDS ORDERED: Morphine Sulfate 4 MG/1 ML Injection IV ONE (17:50)
[2025-10-02 19:00] VITALS: BP 139/87
[2025-10-02] MEDS ORDERED: Ketorolac Tromethamine 30mg Vial IV ONE (19:55)
== END 2025-10-02 21:32 | disposition home or self-care (01) ==
LOC: ER 16:58
DX: M54.50 Low back pain, unspecified (principal); G89.29 Other chronic pain; I10 Essential (primary) hypertension; Z88.2 Allergy status to sulfonamides; Z79.899 Other long term (current) drug therapy
CPT/HCPCS: 72100; 96374; 96375; 99283-25; A9270; J1885; J2270